=== PATIENT | male | born 1955 | race Caucasian/White ===

== ENCOUNTER → 2023-02-13 | Outpatient (CLI) | payer MEDICARE ==
--- NOTE | 2023-02-13 16:30 | XR ---
EXAMINATION TYPE: XR lumbosacral spine min 4V DATE OF EXAM: 02/13/2023 CLINICAL HISTORY: pain COMPARISON: NONE TECHNIQUE: Frontal, lateral, and oblique images of the lumbar spine are obtained. FINDINGS: There are 5 lumbar type vertebral bodies identified. The lumbar spine shows satisfactory alignment without evidence of acute fracture or dislocation. Vertebral body heights are within normal limits. Severe multilevel degenerative disc disease and spondylosis. Severe facet joint arthropathy. The overlying soft tissue appears unremarkable. IMPRESSION: No acute fracture or dislocation is seen in the lumbar spine.ICD 10 NO FRACTURE, INITIAL EVALUATION
--- NOTE | 2023-02-13 16:32 | XR ---
EXAMINATION TYPE: XR scoliosis survey DATE OF EXAM: 02/13/2023 COMPARISON: NONE HISTORY: M41.9,M54.50 TECHNIQUE: AP and lateral views of the thoracolumbar spine are submitted FINDINGS: There is curvature of the thoracic spine convex to the right of 15 degrees. The lumbar spin e demonstrates no evidence for scoliotic curvature. Degenerative changes throughout the thoracolumbar spine. No evidence of fracture or malalignment. IMPRESSION: Thoracic scoliosis
== END | disposition home or self-care (01) ==
LOC: RADXRMAIN 16:04
PROVIDERS: ATTEND Family Medicine
DX: M41.84 Other forms of scoliosis, thoracic region (principal); M54.50 Low back pain, unspecified; G89.29 Other chronic pain
CPT/HCPCS: 72082; 72110